=== PATIENT | female | born 1995 | race American Indian/Alaskan Native ===

== ENCOUNTER 2019-05-06 11:25 | Emergency (ER) | payer MEDICAID ==
[2019-05-06 13:11] VITALS: BP 158/80
--- NOTE | 2019-05-06 13:17 | Emergency Department Report ---
Chief Complaint: Extremity Problem,Nontraumatic Stated Complaint: LEG PAIN Time Seen by Provider: 05/06/19 13:08 - HPI History of Present Illness: pt presents with right ankle and foot pain that began 2-3 days ago. she denies any calf pain, no leg swelling. no fall or injury. she is ambulatory. no numbness or weakness. pmhx none. no allergies to meds. LNMP: end of last month. no vaginal bleeding, no abd pain. states she has also had cold symptoms for a couple of days. she has dry cough, rhinorrhea. she denies any fever, n/v/d, CP, SOB, abd pain. no pmhx. no allergies to meds. initial vitals with elevated HR which improved upon repeat on exam: Non toxic appearing, no acute distress atraumatic, normocephalic normal appearance of the eyes, PERRL, EOMI, no periorbital edema or ecchymosis moist mucus membranes, normal oropharynx, pale, boggy turbinates, no sinus ttp, normal tms and canals bilaterally regular heart rate and rhythm, no gallops, no rubs, no murmurs breath sounds are clear bilaterally, no w/r/r A&O x4, no focal neuro deficit skin is warm, dry, intact No bony tenderness to palpation of the right ankle, foot, or digits, no edema, no joint laxity, no obvious ligamentous laxity, full range of motion of the right ankle, foot, digits, discomfort upon extension of the right ankle, neurovascularly intact Examination consistent with mild right ankle sprain No signs of septic joint, gout, no significant traumatic injury, no signs of DVT Examination consistent with allergic rhinitis and viral URI No clinical signs of pneumonia, strep throat, ear infection, sinusitis Discussed supportive care and symptomatic treatment with patient may take tylenol as needed for pain. may use ice for 15 minutes at a time. may use an michael bandage while doing activities and walking around, do not wear too tightly, do not wear at night. rest, elevate the leg. follow up with an orthopedic doctor if symptoms are not improving. may use zyrtec and flonase nasal spray for allergies. may use humidifier. follow up with a primary care doctor. return to the emergency room for any new or worsening symptoms. Patient is presenting with a nonmedical emergency at this time, there is no threat to life or limb at this time Patient referred to primary care physician and orthopedic Discussed strict return precautions with patient MSE screening note: Focused history and physical exam performed. ED Disposition for MSE Clinical Impression: Viral URI with cough Right ankle sprain Qualifiers: Encounter type: initial encounter Involved ligament of ankle: unspecified ligament Qualified Code(s): S93.401A - Sprain of unspecified ligament of right ankle, initial encounter Allergic rhinitis Qualifiers: Allergic rhinitis trigger: unspecified Allergic rhinitis seasonality: unspecified Qualified Code(s): J30.9 - Allergic rhinitis, unspecified Disposition: MED SCREENING EXAM-LEFT Is pt being admited?: No Does the pt Need Aspirin: No Condition: Stable Instructions: Ankle Sprain (ED), Upper Respiratory Infection (ED), Allergic Rhinitis (ED), RICE Therapy (ED) Additional Instructions: may take tylenol as needed for pain. may use ice for 15 minutes at a time. may use an michael bandage while doing activities and walking around, do not wear too tightly, do not wear at night. rest, elevate the leg. follow up with an orthopedic doctor if symptoms are not improving. may use zyrtec and flonase nasal spray for allergies. may use humidifier. follow up with a primary care doctor. return to the emergency room for any new or worsening symptoms. Referrals: VIRGINIA PATEL MD [Staff Physician] - 3-5 Days [facility] [Provider Group] - 3-5 Days EZEKIEL BANEGAS MD [Staff Physician] - 3-5 Days [facility] [Outside] - 3-5 Days [facility] [Outside] - 3-5 Days Time of Disposition: 13:18 Print Language: [place]
== END 2019-05-06 13:51 | disposition left against medical advice (07) ==
LOC: ED 11:25
DX: S93.401A Sprain of unspecified ligament of right ankle, initial encounter (principal); J30.9 Allergic rhinitis, unspecified; X58.XXXA Exposure to other specified factors, initial encounter; Y93.89 Activity, other specified; Y92.89 Other specified places as the place of occurrence of the external cause; Y99.8 Other external cause status
CPT/HCPCS: 99282